=== PATIENT | female | born 1950 | race Caucasian/White ===

== ENCOUNTER → 2021-10-14 08:09 | Outpatient (CLI) | payer MEDICARE, SELFPAY ==
--- NOTE | ~2021-10-14 | MR_ITS ---
EXAMINATION: MR knee LT wo con DATE: 10/14/2021 08:59 INDICATION: Anterior and medial left knee pain x5 years TECHNIQUE: Magnetic resonance imaging (MRI) of the left knee was performed without intravenous contra st. Sequences included axial PD-weighted FS FSE, coronal PD-weighted FSE and PD-weighted FS FSE, sagi ttal PD-weighted FSE, and sagittal T2-weighted FS FSE. COMPARISON: None. FINDINGS: Mild motion artifact. Medial compartment: Full-thickness cartilage loss, femoral condyle and tibial sclerosis, moderate osteophytosis. Apical a nd vertical tears of the body, medial meniscus. Medial meniscal displacement. Considerable meniscal f raying. Lateral compartment: Moderate diffuse cartilage thinning. Moderate osteophytosis. Degenerative fraying of the meniscus wit hout focal tear. Patellofemoral compartment: Moderate diffuse thinning of medial and lateral facet cartilage. Severe osteophytosis. Extensor mecha nism and retinacula are intact. Ligaments and tendons: ACL, PCL, MCL, and LCL are intact. Fluid: Moderate volume joint fluid. Osseous/other: Benign, homogenous marrow signal except as otherwise stated. IMPRESSION: 1. Severe tricompartmental osteoarthritis of the left knee. 2. Moderate left knee joint effusion. 3. This examination was mildly limited by motion artifact. Reviewed, dictated and finalized at location K.
--- NOTE | ~2021-10-14 | MR_ITS ---
EXAMINATION: MR knee RT wo con DATE: 10/14/2021 09:24 INDICATION: Anterior and medial right knee pain TECHNIQUE: Magnetic resonance imaging (MRI) of the right knee was performed without intravenous contr ast. Sequences included axial PD-weighted FS FSE, coronal PD-weighted FSE and PD-weighted FS FSE, sag ittal PD-weighted FSE, and sagittal T2-weighted FS FSE. COMPARISON: None. FINDINGS: Exam mildly limited by motion artifact. Medial compartment: Severe diffuse cartilage loss. Cross joint subchondral sclerosis. The degenerative appearing frayed m eniscus is displaced into the medial joint recess. Lateral compartment: Moderate diffuse thinning of cartilage. Moderate osteophytosis. Degenerative fraying of the meniscus. Patellofemoral compartment: Moderate medial and lateral facet cartilage loss. Moderate osteophytosis. The retinaculum and extenso r mechanism are intact. Ligaments and tendons: ACL is chronically torn. The PCL, MCL, and LCL are intact. Fluid: Moderate volume joint fluid. Small Arora's cyst. Osseous/other: Benign and homogenous except as otherwise noted. IMPRESSION: 1. Severe tricompartmental osteoarthritis of the right knee. 2. Chronic right ACL tear. 3. Moderate right knee joint effusion. 4. This examination was mildly limited by motion artifact. Reviewed, dictated and finalized at location K.
== END ==
PROVIDERS: PCP Family Medicine; Visit Provider Nurse Practitioner Family
DX: M17.0 Bilateral primary osteoarthritis of knee (principal); S83.511A Sprain of anterior cruciate ligament of right knee, initial encounter; M25.462 Effusion, left knee; M25.461 Effusion, right knee
CPT/HCPCS: 73721